=== PATIENT | female | born 1980 | race Caucasian/White ===

== ENCOUNTER 2018-10-24 08:40 | Inpatient (IN) | payer OTHER ==
[~2018-10-24] VITALS: Ht 172.7 cm; Wt 113.4 kg
[2018-10-24] MEDS ORDERED: PREN-55 PO (08:52)
[2018-10-24] MEDS ORDERED: DEXT 5%/LR + PITOCIN 20UNITS/L 1,000 ML IV SCH (08:52)
[2018-10-24] MEDS ORDERED: MISOPROSTOL 100MCG TABLET VG SCH (09:00)
[2018-10-24 09:49] LABS: CLARITY URINE CLEAR (CLEAR); COLOR URINE YELLOW (YELLOW); KETONES URINE NEGATIVE (NEGATIVE); LEUKOCYTE ESTERASE URINE NEGATIVE (NEGATIVE); NITRITE URINE NEGATIVE (NEGATIVE); OCCULT BLOOD URINE 1+ (NEGATIVE); PH URINE 5.5 (4.5-8.0); PROTEIN URINE 1+ (NEGATIVE); SPECIFIC GRAVITY URINE 1.025 (1.005-1.030); UROBILINOGEN URINE 0.2 E.U./dL (0.2-1.0)
[2018-10-24 09:55] LABS: BASOPHILS % 0.7 % (0.0-2.0); EOSINOPHILS % 1.1 % (0.0-5.0); HEMATOCRIT. 39.2 % (36.0-48.0); LYMPHOCYTES % 22.9 % (20.0-50.0); MEAN CORPUSCULAR HEMOGLOBIN 28.7 pg (28.0-32.0); MEAN CORPUSCULAR VOLUME 86.3 fL (81.0-99.0); MEAN PLATELET VOLUME 10.8 fl (7.4-10.4); MONOCYTES % 8.6 % (2.0-8.0); NEUTROPHILS % 66.7 % (40.0-76.0); PLATELET 253 x1000/uL (130-400); RED BLOOD CELL COUNT 4.54 mill/uL (4.2-5.4); RED CELL DISTRIBUTION WIDTH 14.1 % (11.6-14.6)
[2018-10-24 10:03] LABS: INR 0.9; PARTIAL THROMBOPLASTIN TIME 27.7 sec (23.4-31.0); PROTHROMBIN TIME 9.3 sec (9.1-11.1)
[2018-10-24 10:10] LABS: *BARBITURATES SCREEN URINE NEGATIVE (NEGATIVE)
[2018-10-24 10:11] LABS: *BENZODIAZEPINES SCREEN URINE NEGATIVE (NEGATIVE); *COCAINE SCREEN URINE NEGATIVE (NEGATIVE); METHADONE URINE SCREEN NEGATIVE (NEGATIVE); OPIATES URINE SCREEN NEGATIVE (NEGATIVE); PHENCYCLIDINE URINE SCREEN NEGATIVE (NEGATIVE)
[2018-10-24] MEDS ORDERED: GLYCERIN/WITCH HAZEL LEAF MEDICATED PAD TOP PRN (10:15)
[2018-10-24] MEDS ORDERED: BENZOCAINE/LANOLIN/ALOE VERA SPRAY TOP PRN (10:15)
[2018-10-24] MEDS ORDERED: RHO(D) IMMUNE GLOBULIN 300 MCG/SYR IM PRN (10:15)
[2018-10-24] MEDS ORDERED: DIPHENHYDRAMINE 25MG CAPSULE PO PRN (10:15)
[2018-10-24] MEDS ORDERED: IBUPROFEN 400MG TABLET PO PRN (10:15)
[2018-10-24] MEDS ORDERED: ACETAMINOPHEN WITH CODEINE 300/30MG TABLET PO PRN (10:15)
[2018-10-24] MEDS ORDERED: LANOLIN OINT 0.25 GM TUBE TOP PRN (10:15)
[2018-10-24] MEDS ORDERED: HEMORRHOIDAL SUPP PR PRN (10:15)
[2018-10-24 10:19] LABS: *AMPHETAMINES SCREEN URINE PRESUMTIVE POSITIVE (NEGATIVE); CANNABINOID URINE SCREEN PRESUMTIVE POSITIVE (NEGATIVE)
[2018-10-24] MEDS ORDERED: ONDANSETRON 4MG ODT PO PRN (10:30)
[2018-10-24] MEDS: IBUPROFEN 800MG TABLET PO PRN ×2 (11:02→19:27)
[2018-10-24 12:00] VITALS: BP 144/71
[2018-10-24 12:22] LABS: HEPATITIS B SURFACE ANTIGEN NEGATIVE
[2018-10-24 12:30] VITALS: BP 131/74
[2018-10-24] MEDS ORDERED: MISOPROSTOL 200MCG TABLET ONE (14:34)
[2018-10-24 16:00] VITALS: BP 148/90
[2018-10-24 20:05] VITALS: BP 116/54
[2018-10-24 23:30] VITALS: BP 122/72
[2018-10-25 04:00] VITALS: BP 117/58
[2018-10-25 07:02] LABS: BASOPHILS % 0.6 % (0.0-2.0); EOSINOPHILS % 0.4 % (0.0-5.0); HEMATOCRIT. 33.2 % (36.0-48.0); HEMOGLOBIN. 11.1 g/dL (12.0-16.0); LYMPHOCYTES % 23.5 % (20.0-50.0); MEAN CORPUSCULAR HEMOGLOBIN 28.6 pg (28.0-32.0); MEAN CORPUSCULAR VOLUME 85.4 fL (81.0-99.0); NEUTROPHILS % 67.5 % (40.0-76.0); PLATELET 246 x1000/uL (130-400); RED BLOOD CELL COUNT 3.88 mill/uL (4.2-5.4); RED CELL DISTRIBUTION WIDTH 14.4 % (11.6-14.6)
[2018-10-25 07:31] VITALS: BP 129/79
[2018-10-25] MEDS: IBUPROFEN 800MG TABLET PO PRN ×2 (08:01→18:05)
[2018-10-25] MEDS: PRENATAL VIT/FE FUMARATE/FA TABLET PO SCH (08:01)
[2018-10-25] MEDS: FERROUS SULFATE 325MG TABLET PO SCH ×3 (08:01→18:05)
[2018-10-25] MEDS ORDERED: TETANUS, DIPHTHERIA, PERTUSSIS VAC/PF 0.5ML (>7YR OLD) IM ONE (12:00)
[2018-10-25] MEDS ORDERED: INFLUENZA VIRUS VACCINE(AFLURIA) 0.5ML SYR IM ONE (12:00)
[2018-10-25] MEDS ORDERED: MEDROXYPROGESTERONE ACETATE 150MG/ML VIAL IM NR (14:00)
[2018-10-25 16:21] VITALS: BP 116/62
[2018-10-25 19:55] VITALS: BP 108/54
[2018-10-26 04:00] VITALS: BP 118/66
[2018-10-26 07:47] VITALS: BP 112/68
[2018-10-26] MEDS: FERROUS SULFATE 325MG TABLET PO SCH (08:11)
[2018-10-26] MEDS: IBUPROFEN 800MG TABLET PO PRN (08:11)
[2018-10-26] MEDS: PRENATAL VIT/FE FUMARATE/FA TABLET PO SCH (08:11)
[2018-10-29 14:22] LABS: AMPHETAMINE CONF URINE Positive (.); CANNABINOID CONFIRMATION URINE Positive (.)
== END 2018-10-26 17:00 | disposition home or self-care (01) | DRG 560 ==
LOC: OBSVTOIN 08:40 → 8 EST LDRP 08:40 → 8EST 11:52
PROVIDERS: ADMIT Specialist; ATTEND Specialist
PROC: 3E0234Z Introduction of Serum, Toxoid and Vaccine into Muscle, Percutaneous Approach (ICD-10-PCS; principal; 2018-10-25)
DX: O72.0 Third-stage hemorrhage (principal); F16.10 Hallucinogen abuse, uncomplicated; O99.325 Drug use complicating the puerperium; F15.10 Other stimulant abuse, uncomplicated; O99.335 Smoking (tobacco) complicating the puerperium; F17.200 Nicotine dependence, unspecified, uncomplicated; F12.10 Cannabis abuse, uncomplicated
CPT/HCPCS: 36415; 80305; 80307; 80349; 80359; 86592; 86703; 86762; 86850; 86886; 86900; 87340; 90384; 90715; 99281; J1050; J2590; Q0162